=== PATIENT | female | born 2000 | race Caucasian/White ===

== ENCOUNTER 2022-09-08 13:29 | Emergency (ER) | payer BC, OTHER ==
[2022-09-08 13:39] VITALS: BP 113/62; PULSE 66; RESP 18; TEMP 98; BMI 21.2
[2022-09-08 15:19] LABS: EPI CELLS 18 /uL (0-25.1); HYALINE CASTS 1 /uL (0-3.1); PH,URINE 6.5 (5.0-8.0); URINE APPEARANCE CLEAR; URINE BACTERIA 2051 /uL (0-1359); URINE BILIRUBIN NEGATIVE (NEGATIVE); URINE COLOR YELLOW; URINE GLUCOSE (UA) NEGATIVE (NEGATIVE); URINE KETONE TRACE (NEGATIVE); URINE LEUK ESTERASE 2+ (NEGATIVE); URINE NITRITE NEGATIVE (NEGATIVE); URINE PROTEIN NEGATIVE (NEGATIVE); URINE RBC 32 /uL (0-23.9); URINE UROBILINOGEN 0.2 mg/dL (0.2-1.0); URINE WBC 148 /uL (0-25.8)
[2022-09-08 15:20] LABS: HCG,QUALITATIVE URINE Negative
== END 2022-09-08 16:49 | disposition home or self-care (01) ==
LOC: JERFT 13:29
DX: S09.90XA Unspecified injury of head, initial encounter (principal); R11.0 Nausea; R42 Dizziness and giddiness; W22.8XXA Striking against or struck by other objects, initial encounter
CPT/HCPCS: 70450-TC; 81003; 84703; 87086; 99284-25